=== PATIENT | female | born 1995 | race Caucasian/White ===

== ENCOUNTER → 2024-02-16 13:27 | Outpatient (REF) | payer BC, SELFPAY | LOC: PNTC 13:27 | PROVIDERS: ATTENDING PHYSICIAN Obstetrics & Gynecology | DX: Z34.82 Encounter for supervision of other normal pregnancy, second trimester (principal) | CPT/HCPCS: 76805 ==

== ENCOUNTER 2024-06-15 08:29 | Inpatient (IN) | payer BC, SELFPAY ==
[2024-06-15 08:45] VITALS: BP 135/84; BMI 32.1
[2024-06-15] MEDS: LR 1000 IV (09:30)
[2024-06-15 09:52] LABS: % Basophils 0.1 % (0-2); % Eosinophils 0.5 % (0-6); % Immature Granulocytes 0.6 % (0-0.5); % Lymphocytes 8.6 % (20.5-51.1); % Neutrophils 83.2 % (42.2-75.2); Absolute Immature Granulocytes 0.1 10^3/uL (0-0.05); Absolute Lymphocytes 0.7 10^3/uL (1.2-3.4); Absolute Monocytes 0.6 10^3/uL (0.1-0.6); Absolute Neutrophils 6.8 10^3/uL (1.4-6.5); Hematocrit 32.1 % (37.0-47.0); Hemoglobin 11.2 g/dL (12.0-16.0); Mean Corp Hgb Conc. 34.9 g/dL (33.0-37.0); Mean Corpuscular Hgb 29.4 pg (27.0-31.0); Mean Corpuscular Volume 84.3 fL (81.0-99.0); Mean Platelet Volume 12.1 fL (7.4-10.4); Nucleated Red Blood Cells % 0 %; Platelet Count 159 10^3/uL (130-400); Red Blood Cell Count 3.81 10^6/uL (4.20-5.40); White Blood Cell Count 8.2 10^3/uL (4.8-10.8)
[2024-06-15] MEDS: CYTOTEC 25 MICROGRAM VAG (10:49)
[2024-06-15] MEDS: STADOL 1 MG IV (21:55)
[2024-06-16] MEDS: STADOL 1 MG IV (00:22)
[2024-06-16] MEDS: LR 1000 IV (00:22)
[2024-06-16] MEDS: SUBLIMAZE 100 MCG EPIDURAL (02:27)
[2024-06-16] MEDS: FENTANYL/BUPIVACAINE 100 EPIDURAL (02:27)
[2024-06-16] MEDS: PITOCIN 30 UNITS/NSS 500 ML IV (10:04)
[2024-06-16] MEDS: MOTRIN 600 MG PO (18:44)
[2024-06-17] MEDS: MOTRIN 600 MG PO (04:31)
[2024-06-17 04:44] LABS: Hematocrit 28.5 % (37.0-47.0); Hemoglobin 9.7 g/dL (12.0-16.0)
[2024-06-17] MEDS: PRENATAL PLUS 1 TABLET PO (09:09)
[2024-06-17] MEDS: FEOSOL 325 MG PO (09:09)
[2024-06-17] MEDS: SENOKOT-S 1 TABLET PO (09:10)
[2024-06-17 11:53] LABS: Syphilis/T. pallidum Ab Reflex Negative (Negative)
== END 2024-06-17 18:11 | disposition home or self-care (01) | DRG 807 ==
LOC: LDRP 08:29
PROVIDERS: Obstetrics & Gynecology; ADMITTING PHYSICIAN Obstetrics & Gynecology; ATTENDING PHYSICIAN Student in an Organized Health Care Education/Training Program
PROC: 10E0XZZ Delivery of Products of Conception, External Approach (ICD-10-PCS; 2024-06-16)
PROC: 3E0DXGC Introduction of Other Therapeutic Substance into Mouth and Pharynx, External Approach (ICD-10-PCS; 2024-06-16)
PROC: 0HQ9XZZ Repair Perineum Skin, External Approach (ICD-10-PCS; 2024-06-16)
PROC: 0UQMXZZ Repair Vulva, External Approach (ICD-10-PCS; 2024-06-16)
DX: O48.0 Post-term pregnancy (principal); Z37.0 Single live birth; Z3A.41 41 weeks gestation of pregnancy; O70.0 First degree perineal laceration during delivery
CPT/HCPCS: 36415; 85014; 85018; 85025; 86780; 86850; 86900; 86901